=== PATIENT | female | born 1970 | race Two or more races ===

== ENCOUNTER 2024-05-02 11:15 | Outpatient (AMB) | payer MEDICAID, SELFPAY ==
[2024-05-02 11:32] VITALS: BP 100/66; PULSE 70; RESP 18; TEMP 36.4; O2SAT 96; BMI 27.3
--- NOTE | 2024-05-02 11:32 | PD.GSCLVISIT ---
[facility] - [facility] 05/02/24 11:32 Height 1.63 m Height Method Stated Weight 72.235 kg Weight Measurement Method Standing Scale BMI 27.3 BP 100/66 Blood Pressure Source Automatic Cuff Blood Pressure Location Right Upper Arm Position Sitting Respiration 18 Pulse 70 Pulse Source Monitor Temp 97.5 F Temp Source Temporal Artery Scan Pulse Oximetry (%) 96 Oxygen Delivery Method Room Air Med/Allergies Allergies & Medications Allergies No Known Allergies Allergy (Verified 05/02/24 11:33) Medication Reconciliation metformin 500 mg tablet 500 mg PO BID 12/06/18 [History Confirmed 05/02/24] sitagliptin phosphate 100 mg tablet (Januvia) 100 mg PO QDAY 12/06/18 [History Confirmed 05/02/24] empagliflozin 10 mg tablet (Jardiance) 10 mg PO QDAY 05/02/24 [History Confirmed 05/02/24] insulin glargine 100 unit/mL (3 mL) subcutaneous pen (Basaglar KwikPen U-100 Insulin) 10 unit subcut BID 05/02/24 [History Confirmed 05/02/24] MA Intake Visit Data Collection New Patient or Established: Established Patient (seen at [facility] within 3 years) Reason for Visit:: COLON REFERRAL Pain Present Currently: No Pain scale:: 0 Pain Scale Used: Steele-Toscano/Numerical Beam Builder Required: Yes PCP or OBGYN visit in last 3 months: Yes Hx Now: No Do You Feel Safe at Home: Yes Authorities Contacted: N/A Smoking Status Smoking Status: Never smoker Immunization / Flu Flu Vaccine in the Last 12 Months: Yes Flu Vaccine Exclusion Criteria: Already Received Past Medical History Past Medical History CARDIAC: Negative Cardiac Disorders or Congestive Heart Failure RESPIRATORY: Negative Chronic Obstructive Pulmonary Disease (COPD) or Asthma GENITOURINARY: Negative Renal Disease ENDOCRINE: Positive Diabetes Mellitus Type 2; Negative Diabetes Mellitus Type 1 HEMATOLOGIC: Negative Sickle Cell Disease Social History SMOKING STATUS: Smoking status: Never smoker SUBSTANCE USE: Substance use type: does not use ALCOHOL: Alcohol Intake: Never HOUSING: Housing: House LIVES WITH: Lives With: Children Travel Risk Travel Hx Recent Travel: No HPI HPI Narrative 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 Pt reports for almost 2 years she has had loose BMs, up to 10 times per day, sometimes watery, sometimes just loose. She also sometimes has episodes of urgency/fecal incontinence. Pt denies any abdominal pain, change in stool caliber, blood in stool and unintentional weight loss; she states her weight tends to fluctuate normally. Pt was treated for Cdiff once during this 2 year period. She has not yet had a colonoscopy PMH: Denies PSHx: Cholecystectomy (14-15 years ago, pt denies having diarrhea after), tubal ligation Meds: None Allergies: NKDA Family hx: no known IBD or malignancy ROS Review of Systems Systems Reviewed: All systems reviewed, normal except as documented Objective/Exam General General Appearance: alert, cooperative and well groomed Resp Respiratory exam: Absent respiratory distress Assessment & Plan Diagnosis / Problem List (1) Diarrhea: Status: Acute Assessment & Plan: 53F with 2-year history of diarrhea, with no unintentional weight loss or bleeding. I explained colonoscopy will be prudent to evaluate for IBD as well as for screening, and explained risks of the procedure including perforation and/or the need to abort prematurely. Pt expressed understanding and agrees to proceed Office Procedures GNS Level of Care Nursing/Assessment Patient Status: Established Patient Nursing Assessment/Reassesment: Medication Reconciliation, Update PMH in EMR and Vital Signs Coordination of Care: Complex Care and Chronic Disease 1-5, Education Complex Pt/Fam, Consent,records obtained, informed consent, Results/Orders obtained and Staff clarify orders Special Needs: Language special needs Established Patient Charge Established Patient Point Assignment: 95 Established Patient Point Charge: EP Level 3 (80-115) Patient Portal Questionaires Social History Living Situation History Housing: House Housing Other:: pt lives with dtr Tobacco History Smoking Status: Never smoker Alcohol History Alcohol Intake: Never Domestic Abuse History Do You Feel Safe at Home: Yes Review of Systems Report any current symptoms Only answer those that you have currently: Past Medical History Past Medical History Have you ever been diagnosed with any of the following: Cardiology Problems Congestive Heart Failure: No Respiratory Problems Chronic Obstructive Pulmonary Disease (COPD): No Asthma: No Genital/Urinary Problems Renal Disease: No Endocrine Problems Diabetes Mellitus Type 1: No Diabetes Mellitus Type 2: Yes Blood Problems Sickle Cell Disease: No
== END 2024-05-02 12:17 | disposition home or self-care (01) ==
LOC: HODSRG 11:15
PROVIDERS: PCP Nurse Practitioner Family; Referring Provider Nurse Practitioner Family; Supervising Provider Surgery; Visit Provider Surgery
DX: R19.7 Diarrhea, unspecified (principal)
CPT/HCPCS: 99213; G0463

== ENCOUNTER 2024-05-12 07:20 | Day surgery (SDC) | payer MEDICAID, SELFPAY ==
[2024-05-12] VITALS (10 sets, daily range): BP systolic 104–179; BP diastolic 64–93; PULSE 62–81; RESP 12–25; TEMP 36.2–36.8; O2SAT 95–100; BMI 26.4
[2024-05-12] MEDS: DiphenhydrAMINE INJ 50 MG/ML VIAL 12.5 MG IV (08:17)
[2024-05-12] MEDS: fentaNYL CIT INJ 50 mCg/ML AMP 2ML (ASD USE ONLY) IV (08:23)
[2024-05-12] MEDS: MIDAZOLAM INJ 1 MG/ML VIAL 2 ML (ASD USE ONLY) 2 MG IV (08:23)
--- NOTE | 2024-05-12 09:15 | SUR.PHASEII ---
PT MEETS ALL CRITERIA TO BE D/C. PT IS SITTING IN THE WHEELCHAIR WAITING FOR FAMILY MEMBER TO CUTTER OPERATOR TILE.
== END 2024-05-12 09:36 | disposition home or self-care (01) ==
PROVIDERS: PCP Family Medicine; Referring Provider Surgery; Visit Provider Surgery
PROC: 0DBE8ZX Excision of Large Intestine, Via Natural or Artificial Opening Endoscopic, Diagnostic (ICD-10-PCS; CPT 45380; principal; 2024-05-12 08:30)
DX: K52.9 Noninfective gastroenteritis and colitis, unspecified (principal); K62.89 Other specified diseases of anus and rectum; K64.9 Unspecified hemorrhoids; K62.1 Rectal polyp
CPT/HCPCS: 45380; A4649; J1200; J2250; J3010

== ENCOUNTER 2024-05-16 11:17 | Outpatient (AMB) | payer MEDICAID, SELFPAY ==
--- NOTE | 2024-05-16 11:21 | PD.GSCLVISIT ---
[facility] - [facility] 05/16/24 11:21 Comment TELEMED VISIT Med/Allergies Allergies & Medications Allergies No Known Allergies Allergy (Verified 05/16/24 11:21) Medication Reconciliation metformin 500 mg tablet 500 mg PO BID 12/06/18 [History Confirmed 05/16/24] sitagliptin phosphate 100 mg tablet (Januvia) 100 mg PO QDAY 12/06/18 [History Confirmed 05/16/24] empagliflozin 10 mg tablet (Jardiance) 10 mg PO QDAY 05/02/24 [History Confirmed 05/16/24] insulin glargine 100 unit/mL (3 mL) subcutaneous pen (Basaglar KwikPen U-100 Insulin) 10 unit subcut BID 05/02/24 [History Confirmed 05/16/24] MA Intake Visit Data Collection New Patient or Established: Established Patient (seen at [facility] within 3 years) Seen by Clinical Staff ONLY (RN/MA): No Reason for Visit:: TELEMED VISIT Pain Present Currently: No Pain Scale Used: Steele-Toscano/Numerical Director Ambulatory Required: Yes PCP or OBGYN visit in last 3 months: Yes Hx Now: No Do You Feel Safe at Home: Yes Authorities Contacted: N/A Smoking Status Smoking Status: Never smoker For Telemed visit only Telemed Video/Phone Visit: Yes Verbal consent obtained for Telemed visit?: Yes Telemed Video/Phone visit w/Clinical Staff: 11-20 min Immunization / Flu Flu Vaccine in the Last 12 Months: Yes Flu Vaccine Exclusion Criteria: Already Received Past Medical History Past Medical History NEUROLOGIC: Negative Neurological Disorders or Seizures CARDIAC: Negative Cardiac Disorders or Congestive Heart Failure RESPIRATORY: Negative Chronic Obstructive Pulmonary Disease (COPD) or Asthma GASTROINTESTINAL: Negative Gastrointestinal Disorders GENITOURINARY: Negative Renal Disease REPRODUCTIVE: Positive Previous Pregnancies MUSCULOSKELETAL: Negative Musculoskeletal Disorders ENDOCRINE: Positive Diabetes Mellitus Type 2; Negative Diabetes Mellitus Type 1 HEMATOLOGIC: Negative Blood Disorders or Sickle Cell Disease PSYCHO/SOCIAL: Positive Anxiety OTHER HISTORY: Negative Hospitalization, Down Syndrome, Developmental Delay, Falls, Blood Transfusions, Blood Transfusion Reaction or Anesthesia Reactions Surgical History SURGICAL: Positive Tubal Ligation Social History SMOKING STATUS: Smoking status: Never smoker SUBSTANCE USE: Substance use type: does not use ALCOHOL: Alcohol Intake: Never HOUSING: Housing: House LIVES WITH: Lives With: Children Travel Risk Travel Hx Recent Travel: No HPI HPI Narrative Spoke to pt with phone intepreter 53F s/p diagnostic colonoscopy 05/12/24 for diarrhea having a televisit to discuss results. Pt reports feeling well overall with no new complaints ROS Review of Systems Systems Reviewed: All systems reviewed, normal except as documented Objective/Exam Narrative Physical exam: limited by phone visit Results Colonoscopy report and pathology reviewed Assessment & Plan Diagnosis / Problem List (1) Diarrhea: Status: Acute Assessment & Plan: 53F s/p diagnostic colonoscopy 05/12/24 with findings of benign mild erythema of rectum and hemorrhoids. I recommended pt initiate metamucil fiber daily to mitigate diarrhea and explained that her next colonoscopy will be due in 10 years. All questions were answered and pt expressed understanding Office Procedures GNS Level of Care Nursing/Assessment Patient Status: Established Patient Nursing Assessment/Reassesment: Medication Reconciliation, Update PMH in EMR and Vital Signs Coordination of Care: Complex Care and Chronic Disease 1-5, Education Complex Pt/Fam, Consent,records obtained, informed consent, Results/Orders obtained and Staff clarify orders Special Needs: Language special needs Established Patient Charge Established Patient Point Assignment: 95 Telehealth Telemed Phone/Video with patient at home & Dr,PA,[employer]: Yes Patient Portal Questionaires Social History Living Situation History Housing: House Housing Other:: pt lives with dtr Tobacco History Smoking Status: Never smoker Alcohol History Alcohol Intake: Never Domestic Abuse History Do You Feel Safe at Home: Yes Review of Systems Report any current symptoms Only answer those that you have currently: Past Medical History Past Medical History Have you ever been diagnosed with any of the following: Neurological Problems Seizures: No Cardiology Problems Congestive Heart Failure: No Respiratory Problems Chronic Obstructive Pulmonary Disease (COPD): No Asthma: No Genital/Urinary Problems Renal Disease: No Reproductive Problems Previous Pregnancies: Yes Endocrine Problems Diabetes Mellitus Type 1: No Diabetes Mellitus Type 2: Yes Blood Problems Sickle Cell Disease: No Psychologic Problems Anxiety: Yes Other Problems Hospitalization: No Down Syndrome: No Developmental Delay: No Falls: No Blood Transfusions: No Blood Transfusion Reaction: No Anesthesia Reactions: No
== END 2024-05-16 11:29 | disposition home or self-care (01) ==
LOC: HODSRG 11:17
PROVIDERS: PCP Family Medicine; Referring Provider Family Medicine; Supervising Provider Surgery; Visit Provider Surgery
DX: Z71.2 Person consulting for explanation of examination or test findings (principal); K64.9 Unspecified hemorrhoids; R19.7 Diarrhea, unspecified
CPT/HCPCS: 99212; G0463